=== PATIENT | male | born 1955 | race Caucasian/White ===

== ENCOUNTER 2021-12-19 14:42 | Inpatient (IN) | payer BC, MEDICARE ==
[2021-12-19] MEDS: SODIUM CHLORIDE 0.9% 500 ML 500 ML IV SCH ×3 (15:15→19:33)
[2021-12-19 15:57] LABS: Appearance,Urine Turbid (Clear); Bacteria,Urine Many /hpf; Color,Urine Brown; Mucus,Urine Many /hpf; RBC,Urine >182 /hpf (0-5); WBC,Urine >182 /hpf (0-5)
[2021-12-19] MEDS ORDERED: PIPERACILLIN-TAZOBACTAM 3.375 GM in SODIUM CHLORIDE 0.9% 100 ML IVPB STA (16:22)
[2021-12-19 17:06] LABS: Basophils % (A) 0 %; Eosinophils # (A) 0.1 k/uL (0-0.7); Eosinophils % (A) 1 %; HCT 29.6 % (39.0-53.0); HGB 9.2 gm/dL (13.0-17.5); Hypochromasia Slight; Lymphocytes # (A) 1.2 k/uL (1.0-4.8); Lymphocytes % (A) 12 %; MCH 23.4 pg (25.0-35.0); MCHC 31.2 g/dL (31.0-37.0); MCV 74.9 fL (80.0-100.0); Mean Platelet Volume 6.5; Microcytosis Slight; Monocytes # (A) 0.7 k/uL (0-1.0); Monocytes % (A) 7 %; Neutrophils # (A) 8.2 k/uL (1.3-7.7); Neutrophils % (A) 78 %; Platelet Count 455 k/uL (150-450); RBC 3.96 m/uL (4.30-5.90); RDW 13.9 % (11.5-15.5); WBC 10.5 k/uL (3.8-10.6)
--- NOTE | 2021-12-19 17:15 | ED ---
General Adult HPI - General Chief complaint: Urogenital Stated complaint: Dizziness Time Seen by Provider: 12/19/21 16:03 Source: patient Mode of arrival: ambulatory Limitations: no limitations - History of Present Illness Initial comments: 66 year-old male patient presents to the emergency department for evaluation of brown, foul smelling urine. Patient states he had cystoscope with Dr. Flores urologist 11 days ago. States about three days after he developed darkening of his urine. States when it did not clear up he went to Dr. Chaney and was started on Cipro for UTI. States that he has been taking the cipro for the last 5 days. States that his urine has become more foul. Feels like for the last couple days he has been having "air" come out with his urine. He denies any fevers but states he feels shaky and weak. Denies any dysuria, frequency, or urgency. He has been taking myrbetriq. States he was seeing urology in the first place for urinary frequency, with slow stream, and small output. He has history of hypertension. No other medical problems. - Related Data Home Medications Medication Instructions Recorded Confirmed Alfuzosin HCl [Alfuzosin HCl ER] 10 mg PO W/SUPPER 12/19/21 12/19/21 Ciprofloxacin HCl [Cipro] 500 mg PO BID 12/19/21 12/19/21 Fish Oil/Dha/Epa [Fish Oil 1,200 1 cap PO DAILY 12/19/21 12/19/21 mg Fish Oil] Olmesartan/Hydrochlorothiazide 1 tab PO DAILY 12/19/21 12/19/21 [Olmesartan-Hctz 20-12.5 mg Tab] Turmeric Root Extract [Turmeric] 500 mg PO DAILY 12/19/21 12/19/21 Allergies Allergy/AdvReac Type Severity Reaction Status Date / Time No Known Allergies Allergy Verified 12/19/21 18:05 Review of Systems ROS Statement: Those systems with pertinent positive or pertinent negative responses have been documented in the HPI. ROS Other: All systems not noted in ROS Statement are negative. Past Medical History Past Medical History: Hypertension, Prostate Disorder History of Any Multi-Drug Resistant Organisms: MRSA Date of last positivie culture/infection: 2017 MDRO Source:: mouth Past Surgical History: Appendectomy, Orthopedic Surgery Past Psychological History: No Psychological Hx Reported Smoking Status: Never smoker Past Alcohol Use History: None Reported Past Drug Use History: None Reported General Exam Limitations: no limitations General appearance: alert, in no apparent distress, other (Physical well- developed, well-nourished adult male in no acute distress.) ENT exam: Present: normal exam, normal oropharynx Respiratory exam: Present: normal lung sounds bilaterally. Absent: respiratory distress, wheezes, rales, rhonchi, stridor Cardiovascular Exam: Present: normal rhythm, tachycardia, normal heart sounds. Absent: systolic murmur, diastolic murmur, rubs, gallop, clicks GI/Abdominal exam: Present: soft, normal bowel sounds. Absent: distended, tenderness, guarding, rebound, rigid Neurological exam: Present: alert, oriented X3, CN II-XII intact Psychiatric exam: Present: normal affect, normal mood Skin exam: Present: warm, dry, intact, normal color. Absent: rash Course Vital Signs 12/19/21 12/19/21 15:04 17:48 Temperature 97.3 F L Pulse Rate 116 H 101 H Respiratory 20 18 Rate Blood Pressure 103/62 112/66 O2 Sat by Pulse 97 100 Oximetry Medical Decision Making - Medical Decision Making 66-year-old male patient presents into the emergency department today for foul- smelling brown urine after having a cystoscopy about a week and a half ago. He was started on Cipro 5 days ago and has had no improvement. Physical examination revealed soft, non-tender abdomen. He is afebrile. Tachycardic upon arrival. Labs reviewed and did reveal hemoglobin of 9.2, potassium 3.4, BUN 35, creatinine 1.63. Urinalysis showed greater than 182 reds, greater than 182 whites, many bacteria. This will be sent for culture. He tested negative COVI D. CT abdomen pelvis is obtained and reveals perforated diverticulum with abscess. There is inflammation in the bladder with possible fistula. I did discuss findings and results with the patient. Case was discussed with Dr. Ortega general surgery, Dr. Engel urology, and Ninfa Magdaleno from [facility]. He is agreeable to admission. He is given zosyn. My attending is Dr. Mcdaniel. - Lab Data Result diagrams: 12/19/21 17:01 12/19/21 17:01 Lab Results 12/19/21 12/19/21 12/19/21 Range/Units 15:13 17:01 17:01 WBC 10.5 (3.8-10.6) k/uL RBC 3.96 L (4.30-5.90) m/uL Hgb 9.2 L (13.0-17.5) gm/dL Hct 29.6 L (39.0-53.0) % MCV 74.9 L (80.0-100.0) fL MCH 23.4 L (25.0-35.0) pg MCHC 31.2 (31.0-37.0) g/dL RDW 13.9 (11.5-15.5) % Plt Count 455 H (150-450) k/uL MPV 6.5 Neutrophils % 78 % Lymphocytes % 12 % Monocytes % 7 % Eosinophils % 1 % Basophils % 0 % Neutrophils # 8.2 H (1.3-7.7) k/uL Lymphocytes # 1.2 (1.0-4.8) k/uL Monocytes # 0.7 (0-1.0) k/uL Eosinophils # 0.1 (0-0.7) k/uL Basophils # 0.0 (0-0.2) k/uL Hypochromasia Slight Microcytosis Slight PT 11.1 (9.0-12.0) sec INR 1.0 (<1.2) APTT 24.3 (22.0-30.0) sec Sodium (137-145) mmol/L Potassium (3.5-5.1) mmol/L Chloride (98-107) mmol/L Carbon Dioxide (22-30) mmol/L Anion Gap mmol/L BUN (9-20) mg/dL Creatinine (0.66-1.25) mg/dL Est GFR (CKD-EPI)AfAm (>60 ml/min/1.73 sqM) Est GFR (CKD-EPI)NonAf (>60 ml/min/1.73 sqM) Glucose (74-99) mg/dL Plasma Lactic Acid Francisco (0.7-2.0) mmol/L Calcium (8.4-10.2) mg/dL Total Bilirubin (0.2-1.3) mg/dL AST (17-59) U/L ALT (4-49) U/L Alkaline Phosphatase (38-126) U/L Total Protein (6.3-8.2) g/dL Albumin (3.5-5.0) g/dL Urine Color Brown Urine Appearance Turbid (Clear) Urine RBC >182 H (0-5) /hpf Urine WBC >182 H (0-5) /hpf Urine WBC Clumps Many H (None) /hpf Urine Bacteria Many H (None) /hpf Urine Mucus Many H (None) /hpf Coronavirus (PCR) (Not Detectd) 12/19/21 12/19/21 12/19/21 Range/Units 17:01 17:01 17:37 WBC (3.8-10.6) k/uL RBC (4.30-5.90) m/uL Hgb (13.0-17.5) gm/dL Hct (39.0-53.0) % MCV (80.0-100.0) fL MCH (25.0-35.0) pg MCHC (31.0-37.0) g/dL RDW (11.5-15.5) % Plt Count (150-450) k/uL MPV Neutrophils % % Lymphocytes % % Monocytes % % Eosinophils % % Basophils % % Neutrophils # (1.3-7.7) k/uL Lymphocytes # (1.0-4.8) k/uL Monocytes # (0-1.0) k/uL Eosinophils # (0-0.7) k/uL Basophils # (0-0.2) k/uL Hypochromasia Microcytosis PT (9.0-12.0) sec INR (<1.2) APTT (22.0-30.0) sec Sodium 136 L (137-145) mmol/L Potassium 3.4 L (3.5-5.1) mmol/L Chloride 103 (98-107) mmol/L Carbon Dioxide 22 (22-30) mmol/L Anion Gap 11 mmol/L BUN 35 H (9-20) mg/dL Creatinine 1.63 H (0.66-1.25) mg/dL Est GFR (CKD-EPI)AfAm 50 (>60 ml/min/1.73 sqM) Est GFR (CKD-EPI)NonAf 43 (>60 ml/min/1.73 sqM) Glucose 109 H (74-99) mg/dL Plasma Lactic Acid Francisco 1.0 (0.7-2.0) mmol/L Calcium 9.3 (8.4-10.2) mg/dL Total Bilirubin 0.4 (0.2-1.3) mg/dL AST 16 L (17-59) U/L ALT 12 (4-49) U/L Alkaline Phosphatase 58 (38-126) U/L Total Protein 6.2 L (6.3-8.2) g/dL Albumin 3.6 (3.5-5.0) g/dL Urine Color Urine Appearance (Clear) Urine RBC (0-5) /hpf Urine WBC (0-5) /hpf Urine WBC Clumps (None) /hpf Urine Bacteria (None) /hpf Urine Mucus (None) /hpf Coronavirus (PCR) Not Detected (Not Detectd) - Radiology Data Radiology results: report reviewed, image reviewed CT abdomen and pelvis with contrast was obtained. Report reviewed in its entirety. Impression by Dr. Valencia shows findings concerning for perforated diverticulitis with abscess formation. The abscess its immediately above the urinary bladder with urinary bladder wall thickening which is likely reactive. Process within the bladder lumen suggest possibility of fistula from the abscess to the urinary bladder. Prostatomegaly. Bilateral inguinal hernias. Left non-obstructing renal calculus. Right renal cyst. Disposition Clinical Impression: Perforated diverticulum, Bladder fistula, UTI (urinary tract infection) Disposition: ADMITTED IP TO THIS [facility] Condition: Serious Decision to Admit Reason: Admit from EC Decision Date: 12/19/21 Decision Time: 20:35
[2021-12-19 17:18] LABS: Partial Thromboplastin Time 24.3 sec (22.0-30.0); Prothrombin Time 11.1 sec (9.0-12.0)
[2021-12-19 17:19] LABS: Albumin 3.6 g/dL (3.5-5.0); Calcium 9.3 mg/dL (8.4-10.2); Potassium 3.4 mmol/L (3.5-5.1); Total Bilirubin 0.4 mg/dL (0.2-1.3); Total Protein 6.2 g/dL (6.3-8.2)
--- NOTE | 2021-12-19 18:48 | CT ---
EXAMINATION TYPE: CT abdomen pelvis wo con CT DLP: 1197 mGycm, Automated exposure control for dose reduction was used. DATE OF EXAM: 12/19/2021 6:11 PM COMPARISON: None. CLINICAL INDICATION:Male, 66 years old with history of Abd pain; generalized abdominal pain, "UTI" TECHNIQUE: Standard CT of the abdomen and pelvis without IV or oral contrast. Lack of IV or oral co ntrast limits evaluation of solid and hollow organ viscera. Coronal and sagittal reformats were perfo rmed. FINDINGS: LOWER CHEST: Unremarkable ABDOMEN LIVER: Unremarkable GALLBLADDER AND BILE DUCTS: Unremarkable. PANCREAS: Unremarkable. SPLEEN: Unremarkable. ADRENAL GLANDS: Unremarkable. KIDNEYS AND URETERS: No evidence of hydronephrosis or renal calculus. The ureters are unremarkable. S imple cyst measuring up to 4.2 cm. Show smaller centimeters cyst is also present. A left nonobstructi ng calculus measures millimeters. PELVIS BLADDER: There is a focus of gas within the bladder lumen appreciated on image 135 of series 201. REPRODUCTIVE: Prostate is enlarged in size measuring 6.1 cm in transverse dimension. ABDOMEN & PELVIS STOMACH AND BOWEL: There is a thick-walled feces containing structure within the low central abdomen measuring 6.4 x 4.5 cm which appears separate from bowel/colon. This is in close proximity to the sig moid colon where there are multiple colonic diverticula present. There is surrounding fat stranding c hanges around this area. This immediately abuts the urinary bladder wall with indentation of the supe rior bladder wall. The bladder wall appears thickened measuring up to 18 mm . There are scattered lym ph nodes around this area. No evidence of bowel obstruction. PERITONEUM: No evidence of pneumoperitoneum or free fluid. VASCULATURE: No evidence of aortic aneurysm. MUSCULOSKELETAL: No acute osseous abnormalities LYMPH NODES: No gross evidence for lymphadenopathy. SOFT TISSUE/ABDOMINAL WALL: Bilateral fat filled inguinal hernia. IMPRESSION: 1. Findings concerning for perforated diverticulitis with abscess formation. The abscess sits immedi ately above the urinary bladder with urinary bladder wall thickening which is likely reactive. Assess within the bladder lumen suggests possibility of fistula from the abscess to the urinary bladder 2. Prostatomegaly. 3. Bilateral inguinal hernias. 4. Left obstructing renal calculus. 5. Right renal cyst.
[2021-12-19] MEDS ORDERED: NALOXONE 0.4 MG/ML 1 ML VIAL IV PRN (20:32)
[2021-12-19] MEDS ORDERED: ONDANSETRON 4 MG/2 ML VIAL IVP PRN (20:32)
[2021-12-19] MEDS ORDERED: MORPHINE SULFATE 4 MG/ML SYRINGE IV PRN (20:32)
[2021-12-19] MEDS: SODIUM CHLORIDE 0.9% 1,000 ML IV SCH (23:59)
[2021-12-19] MEDS: PIPERACILLIN-TAZOBACTAM 3.375 GM in SODIUM CHLORIDE 0.9% 100 ML IVPB SCH (23:59)
--- NOTE | 2021-12-20 08:39 | P.GSCN ---
History of Present Illness Consult date: 12/20/21 History of present illness: 66 yo male who presented to the er with brown, foul smelling urine. He has also noticed air when he voids as well as food particles. His urine is infected looking and there is air in his bladder on ct scan as well as diverticulitis wath abscess formation. Of note urologically he was seeing a urologist in [place] for urinary frequency. He had a cysto about 11 days ago where an enlarged prostate was identiifed but no intravesical pathology. He states that he started with the lower tract symptoms as mentioned above. He was started on cipro [address] Chaney. THe patients urine on this exam looks infected. He had been treated with tamsulosin in the past but it gave him to many side effects. He was given a anticholinergic but never really took a. Review of Systems All systems: negative - Constitutional Denies fever, Denies weight loss - EENT Eyes: denies blurred vision Ears, nose, mouth and throat: Denies dysphagia - Cardiovascular Denies chest pain, Denies shortness of breath - Respiratory Denies cough, Denies 7 - Gastrointestinal Reports as per HPI - Genitourinary Denies dysuria, Denies hematuria - Integumentary Denies rash, Denies unusual bruising - Neurological Denies headaches, Denies syncope - Hematologic/Lymphatic Denies easy bleeding, Denies easy bruising Past Medical History Past Medical History: Hypertension, Prostate Disorder Additional Past Medical History / Comment(s): psa elevated 9 yrs ago but came down. History of Any Multi-Drug Resistant Organisms: MRSA Year Discovered:: 2018 MDRO Source:: mouth Past Surgical History: Appendectomy, Orthopedic Surgery Additional Past Surgical History / Comment(s): cystoscopy with Dr Flores 12/08/21. chad from ankle to rt knee Past Psychological History: No Psychological Hx Reported Smoking Status: Never smoker Past Alcohol Use History: None Reported Past Drug Use History: None Reported Medications and Allergies Home Medications Medication Instructions Recorded Confirmed Type Alfuzosin HCl [Alfuzosin HCl ER] 10 mg PO W/SUPPER 12/19/21 12/19/21 History Ciprofloxacin HCl [Cipro] 500 mg PO BID 12/19/21 12/19/21 History Fish Oil/Dha/Epa [Fish Oil 1,200 1 cap PO DAILY 12/19/21 12/19/21 History mg Fish Oil] Olmesartan/Hydrochlorothiazide 1 tab PO DAILY 12/19/21 12/19/21 History [Olmesartan-Hctz 20-12.5 mg Tab] Turmeric Root Extract [Turmeric] 500 mg PO DAILY 12/19/21 12/19/21 History Allergies Allergy/AdvReac Type Severity Reaction Status Date / Time No Known Allergies Allergy Verified 12/19/21 18:05 Surgical - Exam Vital Signs Temp Pulse Resp BP Pulse Ox 97.3 F L 116 H 20 103/62 97 12/19/21 15:04 12/19/21 15:04 12/19/21 15:04 12/19/21 15:04 12/19/21 15:04 - General well developed, well nourished - Eyes PERRL - ENT no hearing loss - Neck no masses - Respiratory normal expansion, normal respiratory effort - Cardiovascular Rhythm: regular - Abdomen Abdomen: soft, non tender - Genitourinary normal penis with no external lesions, testicles present - Integumentary no growths - Neurologic normal coordination, normal sensation - Musculoskeletal normal posture - Psychiatric oriented to time, oriented to person, oriented to place, speech is normal, memory intact Results - Labs 12/19/21 17:01 12/19/21 17:01 Abnormal Lab Results - Last 24 Hours (Table) 12/19/21 12/19/21 12/19/21 Range/Units 15:13 17:01 17:01 RBC 3.96 L (4.30-5.90) m/uL Hgb 9.2 L (13.0-17.5) gm/dL Hct 29.6 L (39.0-53.0) % MCV 74.9 L (80.0-100.0) fL MCH 23.4 L (25.0-35.0) pg Plt Count 455 H (150-450) k/uL Neutrophils # 8.2 H (1.3-7.7) k/uL Sodium 136 L (137-145) mmol/L Potassium 3.4 L (3.5-5.1) mmol/L BUN 35 H (9-20) mg/dL Creatinine 1.63 H (0.66-1.25) mg/dL Glucose 109 H (74-99) mg/dL AST 16 L (17-59) U/L Total Protein 6.2 L (6.3-8.2) g/dL Urine RBC >182 H (0-5) /hpf Urine WBC >182 H (0-5) /hpf Urine WBC Clumps Many H (None) /hpf Urine Bacteria Many H (None) /hpf Urine Mucus Many H (None) /hpf Microbiology - Last 24 Hours (Table) 12/19/21 15:13 Urine Culture - Preliminary Urine,Voided Diabetes panel 12/19/21 Range/Units 17:01 Sodium 136 L (137-145) mmol/L Potassium 3.4 L (3.5-5.1) mmol/L Chloride 103 (98-107) mmol/L Carbon Dioxide 22 (22-30) mmol/L BUN 35 H (9-20) mg/dL Creatinine 1.63 H (0.66-1.25) mg/dL Glucose 109 H (74-99) mg/dL Calcium 9.3 (8.4-10.2) mg/dL AST 16 L (17-59) U/L ALT 12 (4-49) U/L Alkaline Phosphatase 58 (38-126) U/L Total Protein 6.2 L (6.3-8.2) g/dL Albumin 3.6 (3.5-5.0) g/dL Calcium panel 12/19/21 Range/Units 17:01 Calcium 9.3 (8.4-10.2) mg/dL Albumin 3.6 (3.5-5.0) g/dL Pituitary panel 12/19/21 Range/Units 17:01 Sodium 136 L (137-145) mmol/L Potassium 3.4 L (3.5-5.1) mmol/L Chloride 103 (98-107) mmol/L Carbon Dioxide 22 (22-30) mmol/L BUN 35 H (9-20) mg/dL Creatinine 1.63 H (0.66-1.25) mg/dL Glucose 109 H (74-99) mg/dL Calcium 9.3 (8.4-10.2) mg/dL Adrenal panel 12/19/21 Range/Units 17:01 Sodium 136 L (137-145) mmol/L Potassium 3.4 L (3.5-5.1) mmol/L Chloride 103 (98-107) mmol/L Carbon Dioxide 22 (22-30) mmol/L BUN 35 H (9-20) mg/dL Creatinine 1.63 H (0.66-1.25) mg/dL Glucose 109 H (74-99) mg/dL Calcium 9.3 (8.4-10.2) mg/dL Total Bilirubin 0.4 (0.2-1.3) mg/dL AST 16 L (17-59) U/L ALT 12 (4-49) U/L Alkaline Phosphatase 58 (38-126) U/L Total Protein 6.2 L (6.3-8.2) g/dL Albumin 3.6 (3.5-5.0) g/dL - Imaging CT scan - abdomen: report reviewed, image reviewed CT scan - pelvis: report reviewed, image reviewed Assessment and Plan Assessment: 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 BPH with obstruction chronic Recommendations: At this juncture there is nothing urologic needs to be done. He needs general surgical consultation for probable surgical intervention for this problem. This is been discussed at length with the patient. I will do with his BPH at a later date.
[2021-12-20 09:04] LABS: HCT 26.2 % (39.6-50.0); HGB 8.3 g/dL (13.0-17.0); MCH 23.1 pg (27.0-32.0); MCHC 31.7 g/dL (32.0-37.0); Mean Platelet Volume 8.5 fL (9.5-12.2); Platelet Count 389 X 10*3/uL (140-440); RBC 3.59 X 10*6/uL (4.40-5.60); RDW 14.6 % (11.5-14.5); WBC 7.63 X 10*3/uL (4.50-10.00)
[2021-12-20 09:15] LABS: African American GFR (CKD) 59.8 (60.0-200.0); Anion Gap 11.6 mmol/L (10.00-18.00); BUN/Creat Ratio 15.29 Ratio (12.00-20.00); Blood Urea Nitrogen 21.4 mg/dL (9.0-27.0); Calcium 8.8 mg/dL (8.7-10.3); Carbon Dioxide 21.4 mmol/L (20.0-27.5); Non-African American GFR(CKD) 51.6 (60.0-200.0); Potassium 3.6 mmol/L (3.5-5.5)
[2021-12-20] MEDS: PIPERACILLIN-TAZOBACTAM 3.375 GM in SODIUM CHLORIDE 0.9% 100 ML IVPB SCH ×2 (09:46→17:46)
[2021-12-20 09:56] LABS: Basophils # (A) 0.06 X 10*3/uL (0.00-0.10); Basophils % (A) 0.8 %; Eosinophils # (A) 0.19 X 10*3/uL (0.04-0.35); Eosinophils % (A) 2.5 %; Lymphocytes # (A) 1.54 X 10*3/uL (0.90-5.00); Lymphocytes % (A) 20.2 %; Monocytes % (A) 11.8 %; Neutrophils # (A) 4.86 X 10*3/uL (1.80-7.70); Neutrophils % (A) 63.7 %
[2021-12-20 09:57] LABS: Microcytosis (M) 2+
[2021-12-20] MEDS: SODIUM CHLORIDE 0.9% 1,000 ML IV SCH (14:34)
--- NOTE | 2021-12-20 14:48 | P.GSCN ---
History of Present Illness Consult date: 12/20/21 History of present illness: CHIEF COMPLAINT: Stool and urine HISTORY OF PRESENT ILLNESS: This is a 66-year-old male who presented to the hospital with brown foul-smelling urine. He had a cystoscopy with Dr. Flores from urology 11 days ago. Patient also treated with antibiotics with no improvement in his urinary symptoms. Patient reports that his symptoms started 2 days after his cystoscopy. Patient denies any abdominal pain. Denies any abdominal pain last week. He also reports that he is sometimes passes air through his urine. He denies any nausea or vomiting. He had a computed tomography scan of the abdomen and pelvis completed which had shown perforated diverticulitis with abscess formation and concerns for a colovesical fistula. Patient has been seen by urology. Patient is currently on antibiotics. He reports that his urine is now clear. He is currently nothing by mouth. Denies any fever chills or sweats. Denies any nausea vomiting. Patient denies any prior history of diverticulitis. Denies ever having a colonoscopy. PAST MEDICAL HISTORY: Hypertension, enlarged prostate PAST SURGICAL HISTORY: Appendectomy MEDICATIONS: See list. ALLERGIES: See list. SOCIAL HISTORY: No illicit drug use. REVIEW OF SYSTEMS: CONSTITUTIONAL: Denies fever or chills. HEENT: Denies blurred vision, vision changes, or eye pain. Denies hemoptysis CARDIOVASCULAR: Denies chest pain or pressure. RESPIRATORY: No shortness of breath. GASTROINTESTINAL: See HPI for pertinent findings HEMATOLOGIC: Denies bleeding disorders. GENITOURINARY: Denies any blood in urine or increased urinary frequency. SKIN: Denies pruitis. Denies rash. PHYSICAL EXAM: VITAL SIGNS: Reviewed GENERAL: Well-developed in no acute distress. HEENT: No sclera icterus. Extraocular movements grossly intact. Moist buccal mucosa. Head is atraumatic, normocephalic. No nasal drainage. ABDOMEN: Soft. Nondistended. Mild tenderness to palpation and suprapubic area NEUROLOGIC: Alert and oriented. Cranial nerves II through XII grossly intact. LABORATORY DATA: WBC 7.63 hemoglobin 8.3 platelets 389 Sodium 138 potassium 3.6 creatinine 1.4 IMAGING: Computed tomography scan abdomen and pelvis findings consistent for perforated diverticulitis with abscess formation. Abscess site immediately above the urinary bladder with urinary bladder wall thickening which is likely reactive. Assessment within the bladder lumen suggest possibility of fistula from the abscess to the urinary bladder. Prostatomegaly. Bilateral inguinal hernias. Left obstructing renal calculus. Right renal cyst. ASSESSMENT: 1. Acute perforated diverticulitis with abscess formation and colovesical fistula PLAN: -Further recommendations forthcoming per surgeon regarding actual date of surgery -Continue supportive care -Continue antibiotics -Continue IV fluids Thank you for this consultation Physician Flat Cutter note has been reviewed by physician. Signing provider agrees with the documented findings, assessment, and plan of care. Past Medical History Past Medical History: Hypertension, Prostate Disorder Additional Past Medical History / Comment(s): psa elevated 9 yrs ago but came down. History of Any Multi-Drug Resistant Organisms: MRSA Year Discovered:: 2018 MDRO Source:: mouth Past Surgical History: Appendectomy, Orthopedic Surgery Additional Past Surgical History / Comment(s): cystoscopy with Dr Flores 12/08/21. chad from ankle to rt knee Past Psychological History: No Psychological Hx Reported Smoking Status: Never smoker Past Alcohol Use History: None Reported Past Drug Use History: None Reported Medications and Allergies Home Medications Medication Instructions Recorded Confirmed Type Alfuzosin HCl [Alfuzosin HCl ER] 10 mg PO W/SUPPER 12/19/21 12/19/21 History Ciprofloxacin HCl [Cipro] 500 mg PO BID 12/19/21 12/19/21 History Fish Oil/Dha/Epa [Fish Oil 1,200 1 cap PO DAILY 12/19/21 12/19/21 History mg Fish Oil] Olmesartan/Hydrochlorothiazide 1 tab PO DAILY 12/19/21 12/19/21 History [Olmesartan-Hctz 20-12.5 mg Tab] Turmeric Root Extract [Turmeric] 500 mg PO DAILY 12/19/21 12/19/21 History Allergies Allergy/AdvReac Type Severity Reaction Status Date / Time No Known Allergies Allergy Verified 12/19/21 18:05 Surgical - Exam Vital Signs Temp Pulse Resp BP Pulse Ox 97.3 F L 116 H 20 103/62 97 12/19/21 15:04 12/19/21 15:04 12/19/21 15:04 12/19/21 15:04 12/19/21 15:04 Results - Labs 12/20/21 06:10 12/20/21 06:10 Abnormal Lab Results - Last 24 Hours (Table) 12/19/21 12/19/21 12/19/21 Range/Units 15:13 17:01 17:01 RBC 3.96 L (4.30-5.90) m/uL Hgb 9.2 L (13.0-17.5) gm/dL Hct 29.6 L (39.0-53.0) % MCV 74.9 L (80.0-100.0) fL MCH 23.4 L (25.0-35.0) pg MCHC (32.0-37.0) g/dL RDW (11.5-14.5) % Plt Count 455 H (150-450) k/uL MPV (9.5-12.2) fL Immature Gran # (0.00-0.04) X 10*3/uL Neutrophils # 8.2 H (1.3-7.7) k/uL Sodium 136 L (137-145) mmol/L Potassium 3.4 L (3.5-5.1) mmol/L BUN 35 H (9-20) mg/dL Creatinine 1.63 H (0.66-1.25) mg/dL Est GFR (CKD-EPI)AfAm (60.0-200.0) Est GFR (CKD-EPI)NonAf (60.0-200.0) Glucose 109 H (74-99) mg/dL AST 16 L (17-59) U/L Total Protein 6.2 L (6.3-8.2) g/dL Urine RBC >182 H (0-5) /hpf Urine WBC >182 H (0-5) /hpf Urine WBC Clumps Many H (None) /hpf Urine Bacteria Many H (None) /hpf Urine Mucus Many H (None) /hpf 12/20/21 12/20/21 Range/Units 06:10 06:10 RBC 3.59 L (4.30-5.90) m/uL Hgb 8.3 L (13.0-17.5) gm/dL Hct 26.2 L (39.0-53.0) % MCV 73.0 L (80.0-100.0) fL MCH 23.1 L (25.0-35.0) pg MCHC 31.7 L (32.0-37.0) g/dL RDW 14.6 H (11.5-14.5) % Plt Count (150-450) k/uL MPV 8.5 L (9.5-12.2) fL Immature Gran # 0.08 H (0.00-0.04) X 10*3/uL Neutrophils # (1.3-7.7) k/uL Sodium (137-145) mmol/L Potassium (3.5-5.1) mmol/L BUN (9-20) mg/dL Creatinine (0.66-1.25) mg/dL Est GFR (CKD-EPI)AfAm 59.8 L (60.0-200.0) Est GFR (CKD-EPI)NonAf 51.6 L (60.0-200.0) Glucose (74-99) mg/dL AST (17-59) U/L Total Protein (6.3-8.2) g/dL Urine RBC (0-5) /hpf Urine WBC (0-5) /hpf Urine WBC Clumps (None) /hpf Urine Bacteria (None) /hpf Urine Mucus (None) /hpf Microbiology - Last 24 Hours (Table) 12/19/21 15:13 Urine Culture - Preliminary Urine,Voided Diabetes panel 12/19/21 12/20/21 Range/Units 17:01 06:10 Sodium 136 L 138 (137-145) mmol/L Potassium 3.4 L 3.6 (3.5-5.1) mmol/L Chloride 103 105 (98-107) mmol/L Carbon Dioxide 22 21.4 (22-30) mmol/L BUN 35 H 21.4 (9-20) mg/dL Creatinine 1.63 H 1.4 (0.66-1.25) mg/dL Glucose 109 H 104 (74-99) mg/dL Calcium 9.3 8.8 (8.4-10.2) mg/dL AST 16 L (17-59) U/L ALT 12 (4-49) U/L Alkaline Phosphatase 58 (38-126) U/L Total Protein 6.2 L (6.3-8.2) g/dL Albumin 3.6 (3.5-5.0) g/dL Calcium panel 12/19/21 12/20/21 Range/Units 17:01 06:10 Calcium 9.3 8.8 (8.4-10.2) mg/dL Albumin 3.6 (3.5-5.0) g/dL Pituitary panel 12/19/21 12/20/21 Range/Units 17:01 06:10 Sodium 136 L 138 (137-145) mmol/L Potassium 3.4 L 3.6 (3.5-5.1) mmol/L Chloride 103 105 (98-107) mmol/L Carbon Dioxide 22 21.4 (22-30) mmol/L BUN 35 H 21.4 (9-20) mg/dL Creatinine 1.63 H 1.4 (0.66-1.25) mg/dL Glucose 109 H 104 (74-99) mg/dL Calcium 9.3 8.8 (8.4-10.2) mg/dL Adrenal panel 12/19/21 12/20/21 Range/Units 17:01 06:10 Sodium 136 L 138 (137-145) mmol/L Potassium 3.4 L 3.6 (3.5-5.1) mmol/L Chloride 103 105 (98-107) mmol/L Carbon Dioxide 22 21.4 (22-30) mmol/L BUN 35 H 21.4 (9-20) mg/dL Creatinine 1.63 H 1.4 (0.66-1.25) mg/dL Glucose 109 H 104 (74-99) mg/dL Calcium 9.3 8.8 (8.4-10.2) mg/dL Total Bilirubin 0.4 (0.2-1.3) mg/dL AST 16 L (17-59) U/L ALT 12 (4-49) U/L Alkaline Phosphatase 58 (38-126) U/L Total Protein 6.2 L (6.3-8.2) g/dL Albumin 3.6 (3.5-5.0) g/dL
[2021-12-20] MEDS: HEPARIN SODIUM,PORCINE/PF 5,000 UNIT/0.5 ML SYRINGE SQ SCH (17:46)
--- NOTE | 2021-12-20 22:47 | P.HPIM ---
History of Present Illness H&P Date: 12/20/21 Patient is a 66-year-old male with known history of hypertension, BPH presents to ER with complaints of brown-colored urine and foul-smelling with bubbles of air. Patient states that he had cystoscope done due to urinary urgency and frequency by his urologist about 11 days ago and started having symptoms 2 days after. Patient was seen by his primary care physician and was started on antibiotics in the form of ciprofloxacin for possible urinary tract infection. Patient has been taking antibiotics but his symptoms did not resolve. For the past 2 days he has been having pain coming out of his urine. Patient denied any complaints of fever but felt shaky and weak. Denied any dysuria. No complaints of chest pain or shortness of breath. Denied any abdominal pain. CT of the abdomen pelvis showed findings concerning for perforated diverticulitis with abscess formation. The abscess sits immediately above the urinary bladder with the urinary bladder wall thickening which is likely reactive. Abscess within the bladder lumen suggest possibility of fistula from the abscess of the urinary bladder. Left obstructing renal calculus. Prostatomegaly. Laboratory data showed WBC 10.4 hemoglobin 9.1 platelets 455 MCV 74.9 Sodium 136 potassium 3.4 chloride 103 BUN 35 and creatinine 1.63 Urinalysis showed greater than 182 RBCs and greater than 182 WBCs and many bacteria and WBC clumps Coronavirus PCR not detected. Review of Systems Constitutional: Patient denies any fever or chills . No generalized weakness or weight loss. Abdomen: Patient denied nausea vomiting and diarrhea and abdominal pain. Cardiovascular: Patient denies any chest pain or short of breath no palpitations. Respiratory: patient denied any cough or sputum production. No shortness of breath Neurologic: Patient denied any numbness or tingling headache. Musculoskeletal: Patient denies any complaints of joint swelling or deformity. Skin: Negative Psychiatric: Negative Endocrine: No heat or cold intolerance. No recent weight gain. Genitourinary: Does complain of brown-colored urine and with gas bubbles and dysuria.. All other 14 point ROS negative except the above Past Medical History Past Medical History: Hypertension, Prostate Disorder Additional Past Medical History / Comment(s): psa elevated 9 yrs ago but came down. History of Any Multi-Drug Resistant Organisms: MRSA Date of last positivie culture/infection: 2017 MDRO Source:: mouth Past Surgical History: Appendectomy, Orthopedic Surgery Additional Past Surgical History / Comment(s): cystoscopy with Dr Flores 12/08/21. chad from ankle to rt knee Past Psychological History: No Psychological Hx Reported Smoking Status: Never smoker Past Alcohol Use History: None Reported Past Drug Use History: None Reported Medications and Allergies Home Medications Medication Instructions Recorded Confirmed Type Alfuzosin HCl [Alfuzosin HCl ER] 10 mg PO W/SUPPER 12/19/21 12/19/21 History Ciprofloxacin HCl [Cipro] 500 mg PO BID 12/19/21 12/19/21 History Fish Oil/Dha/Epa [Fish Oil 1,200 1 cap PO DAILY 12/19/21 12/19/21 History mg Fish Oil] Olmesartan/Hydrochlorothiazide 1 tab PO DAILY 12/19/21 12/19/21 History [Olmesartan-Hctz 20-12.5 mg Tab] Turmeric Root Extract [Turmeric] 500 mg PO DAILY 12/19/21 12/19/21 History Allergies Allergy/AdvReac Type Severity Reaction Status Date / Time No Known Allergies Allergy Verified 12/19/21 18:05 Physical Exam Vitals: Vital Signs Temp Pulse Pulse Pulse Resp BP BP 12/20/21 08:47 70 12/20/21 07:21 94 F L 87 18 124/75 12/20/21 05:08 98.6 F 85 18 104/68 12/19/21 23:01 97.9 F 92 18 114/68 12/19/21 17:48 101 H 18 112/66 12/19/21 15:04 97.3 F L 116 H 20 103/62 Pulse Ox 12/20/21 08:47 12/20/21 07:21 94 L 12/20/21 05:08 96 12/19/21 23:01 97 12/19/21 17:48 100 12/19/21 15:04 97 Intake and Output 12/19/21 12/20/21 12/20/21 22:59 06:59 14:59 Intake Total 600 Output Total 400 400 Balance 200 -400 Intake: Intake, IV Titration 600 Amount Sodium Chloride 0.9% 1, 600 000 ml @ 75 mls/hr IV . [id number] [facility] Rx#:[id number] Output: Urine 400 400 Other: Voiding Method Toilet Urinal # Voids 1 Weight 105.687 kg PHYSICAL EXAMINATION: Patient is lying in the bed comfortably, no acute distress, awake alert and oriented.. HEENT: Normocephalic. Neck is supple. Pupils reactive. Nostrils clear. Oral cavity is moist. Neck reveals no JVD, carotid bruits, or thyromegaly. CHEST EXAMINATION: Trachea is central. Symmetrical expansion. Lung hernandez clear to auscultation and percussion. CARDIAC: Normal S1, S2 with no gallops. No murmurs ABDOMEN: Soft. Bowel sounds normal. No organomegaly. No abdominal bruits. Extremities: reveal no edema. No clubbing or cyanosis Neurologically awake, alert, oriented x3 with well-coordinated movements. No focal deficits noted Skin: No rash or skin lesions. Psychiatric: Cooperative. Nonsuicidal Musculoskeletal: No joint swelling or deformity. Normal range of motion. Results CBC & Chem 7: 12/21/21 07:02 12/21/21 07:02 Labs: Abnormal Lab Results - Last 24 Hours (Table) 12/19/21 12/19/21 12/19/21 Range/Units 15:13 17:01 17:01 RBC 3.96 L (4.30-5.90) m/uL Hgb 9.2 L (13.0-17.5) gm/dL Hct 29.6 L (39.0-53.0) % MCV 74.9 L (80.0-100.0) fL MCH 23.4 L (25.0-35.0) pg MCHC (32.0-37.0) g/dL RDW (11.5-14.5) % Plt Count 455 H (150-450) k/uL MPV (9.5-12.2) fL Neutrophils # 8.2 H (1.3-7.7) k/uL Sodium 136 L (137-145) mmol/L Potassium 3.4 L (3.5-5.1) mmol/L BUN 35 H (9-20) mg/dL Creatinine 1.63 H (0.66-1.25) mg/dL Est GFR (CKD-EPI)AfAm (60.0-200.0) Est GFR (CKD-EPI)NonAf (60.0-200.0) Glucose 109 H (74-99) mg/dL AST 16 L (17-59) U/L Total Protein 6.2 L (6.3-8.2) g/dL Urine RBC >182 H (0-5) /hpf Urine WBC >182 H (0-5) /hpf Urine WBC Clumps Many H (None) /hpf Urine Bacteria Many H (None) /hpf Urine Mucus Many H (None) /hpf 12/20/21 12/20/21 Range/Units 06:10 06:10 RBC 3.59 L (4.30-5.90) m/uL Hgb 8.3 L (13.0-17.5) gm/dL Hct 26.2 L (39.0-53.0) % MCV 73.0 L (80.0-100.0) fL MCH 23.1 L (25.0-35.0) pg MCHC 31.7 L (32.0-37.0) g/dL RDW 14.6 H (11.5-14.5) % Plt Count (150-450) k/uL MPV 8.5 L (9.5-12.2) fL Neutrophils # (1.3-7.7) k/uL Sodium (137-145) mmol/L Potassium (3.5-5.1) mmol/L BUN (9-20) mg/dL Creatinine (0.66-1.25) mg/dL Est GFR (CKD-EPI)AfAm 59.8 L (60.0-200.0) Est GFR (CKD-EPI)NonAf 51.6 L (60.0-200.0) Glucose (74-99) mg/dL AST (17-59) U/L Total Protein (6.3-8.2) g/dL Urine RBC (0-5) /hpf Urine WBC (0-5) /hpf Urine WBC Clumps (None) /hpf Urine Bacteria (None) /hpf Urine Mucus (None) /hpf Microbiology - Last 24 Hours (Table) 12/19/21 15:13 Urine Culture - Preliminary Urine,Voided Thrombosis Risk Factor Assmnt - DVT/VTE Prophylaxis DVT/VTE Prophylaxis: Pharmacologic Prophylaxis ordered - Choose All That Apply Any of the Below Risk Factors Present?: No Each Risk Factor Represents 2 Points: Age 61-74 years Thrombosis Risk Factor Assessment Total Risk Factor Score: 2 Thrombosis Risk Factor Assessment Level: Low Risk Assessment and Plan Assessment: Acute perforated diverticulitis with abscess formation Bladder wall thickening at the elbow abscess with possible fistula formation from the perforated diverticulitis. Acute kidney injury likely prerenal Hypovolemic hyponatremia Microcytic anemia. Rule out iron deficiency. Hypokalemia Left obstructing renal calculus BPH Urinary frequency and urgency Hypertension DVT prophylaxis Heparin subcu Plan: Patient will be continued on IV hydration and antibiotics in the form of Zosyn. Follow-up renal function. Replace electrolytes. Follow-up blood cultures and urine cultures. Urology and general surgery was consulted. Continue to follow closely. Prognosis is guarded at this time. Time with Patient: Greater than 30
[2021-12-21] MEDS: SODIUM CHLORIDE 0.9% 1,000 ML IV SCH ×2 (00:05→18:18)
[2021-12-21] MEDS: HEPARIN SODIUM,PORCINE/PF 5,000 UNIT/0.5 ML SYRINGE SQ SCH ×3 (00:05→16:59)
[2021-12-21] MEDS: PIPERACILLIN-TAZOBACTAM 3.375 GM in SODIUM CHLORIDE 0.9% 100 ML IVPB SCH ×3 (00:05→16:59)
[2021-12-21] MEDS ORDERED: NON FORMULARY DRUG (Fish Oil/Dha/Epa [Fish Oil 1,200 Mg Fish Oil] 1 EACH Capsule) PO SCH (09:00)
[2021-12-21] MEDS ORDERED: SODIUM FERRIC GLUCONAT-SUCROSE 125 MG in SODIUM CHLORIDE 0.9% 100 ML IVPB ONE ×2 (10:00→13:00)
[2021-12-21 11:04] LABS: Basophils # (A) 0.06 X 10*3/uL (0.00-0.10); Basophils % (A) 0.7 %; Eosinophils # (A) 0.22 X 10*3/uL (0.04-0.35); Eosinophils % (A) 2.4 %; HCT 28.8 % (39.6-50.0); HGB 8.8 g/dL (13.0-17.0); Lymphocytes # (A) 1.73 X 10*3/uL (0.90-5.00); Lymphocytes % (A) 19.1 %; MCH 22.8 pg (27.0-32.0); MCHC 30.6 g/dL (32.0-37.0); MCV 74.6 fL (80.0-97.0); Mean Platelet Volume 8.6 fL (9.5-12.2); Monocytes # (A) 1.03 X 10*3/uL (0.20-1.00); Monocytes % (A) 11.4 %; Neutrophils # (A) 5.91 X 10*3/uL (1.80-7.70); Neutrophils % (A) 65.4 %; Platelet Count 421 X 10*3/uL (140-440); RBC 3.86 X 10*6/uL (4.40-5.60); RDW 14.5 % (11.5-14.5); WBC 9.04 X 10*3/uL (4.50-10.00)
[2021-12-21 11:15] LABS: % Iron Saturation 9.97 (15.00-50.00); African American GFR (CKD) 67.3 (60.0-200.0); Anion Gap 12.3 mmol/L (10.00-18.00); BUN/Creat Ratio 12.52 Ratio (12.00-20.00); Blood Urea Nitrogen 15.9 mg/dL (9.0-27.0); Calcium 9.2 mg/dL (8.7-10.3); Carbon Dioxide 22.7 mmol/L (20.0-27.5); Non-African American GFR(CKD) 58.1 (60.0-200.0); Potassium 4.3 mmol/L (3.5-5.5)
--- NOTE | 2021-12-21 13:46 | P.PN ---
Subjective Progress Note Date: 12/21/21 CHIEF COMPLAINT: Acute perforated diverticulitis with abscess formation and colovesical fistula HISTORY OF PRESENT ILLNESS: Patient denies any abdominal pain. He started having burning with urination and passing air through his urethra again. Denies any nausea vomiting. Remains afebrile. WBC is 9.04 hemoglobin 8.8. He is on IV Zosyn. He did have a bowel movement yesterday. Denies any stool in the urine. Patient did receive a dose of IV iron. PHYSICAL EXAM: VITAL SIGNS: Reviewed. GENERAL: Well-developed in no acute distress. HEENT: No sclera icterus. Extraocular movements grossly intact. Moist buccal mucosa. Head is atraumatic, normocephalic. ABDOMEN: Soft. Nondistended. Nontender. NEUROLOGIC: Alert and oriented. Cranial nerves II through XII grossly intact. ASSESSMENT: 1. Acute perforated diverticulitis with abscess formation and colovesical fistula PLAN: -Recommend to keep patient over the weekend to continue IV antibiotics. Patient is symptomatic with dysuria. -Anticipating surgery early next week -Continue supportive care -Continue antibiotics -Continue IV fluids -DVT prophylaxis subcu heparin Physician Levi Maker note has been reviewed by physician. Signing provider agrees with the documented findings, assessment, and plan of care. Objective - Vital Signs Vital signs: Vital Signs Temp 98.5 F 12/21/21 07:54 Pulse 77 12/21/21 07:54 Resp 12 12/21/21 07:54 BP 103/67 12/21/21 07:54 Pulse Ox 96 12/21/21 07:54 Intake & Output 12/20/21 12/21/21 12/21/21 18:59 06:59 18:59 Intake Total 1100 237 Output Total 1400 450 Balance -300 -213 Intake: Intake, IV Titration 1100 Amount Piperacillin-Tazobactam 3 200 .375 gm In Sodium Chloride 0.9% 100 ml @ 25 mls/hr IVPB Q8HR [facility] Rx# :[id number] Sodium Chloride 0.9% 1, 900 000 ml @ 75 mls/hr IV . [id number] [facility] Rx#:[id number] Oral 237 Output: Urine 1400 450 Other: Voiding Method Toilet Toilet Toilet Urinal Urinal Urinal # Voids 1 1 - Labs CBC & Chem 7: 12/21/21 07:02 12/21/21 07:02 Labs: Abnormal Lab Results - Last 24 Hours (Table) 12/21/21 12/21/21 Range/Units 07:02 07:02 RBC 3.86 L (4.40-5.60) X 10*6/uL Hgb 8.8 L (13.0-17.0) g/dL Hct 28.8 L (39.6-50.0) % MCV 74.6 L (80.0-97.0) fL MCH 22.8 L (27.0-32.0) pg MCHC 30.6 L (32.0-37.0) g/dL MPV 8.6 L (9.5-12.2) fL Immature Gran # 0.09 H (0.00-0.04) X 10*3/uL Monocytes # 1.03 H (0.20-1.00) X 10*3/uL Est GFR (CKD-EPI)NonAf 58.1 L (60.0-200.0) Iron 22 L (65-175) ug/dL TIBC 223 L (228-460) ug/dL % Saturation 9.97 L (15.00-50.00) Transferrin 159.0 L (204.0-354.0) mg/dL Microbiology - Last 24 Hours (Table) 12/19/21 17:30 Blood Culture - Preliminary Blood No Growth after 24 hours 12/19/21 17:15 Blood Culture - Preliminary Blood No Growth after 24 hours 12/19/21 15:13 Urine Culture - Final Urine,Voided
--- NOTE | 2021-12-21 22:23 | P.PN ---
Subjective Progress Note Date: 12/21/21 Patient is a 66-year-old male with known history of hypertension, BPH presents to ER with complaints of brown-colored urine and foul-smelling with bubbles of air. Patient states that he had cystoscope done due to urinary urgency and frequency by his urologist about 11 days ago and started having symptoms 2 days after. Patient was seen by his primary care physician and was started on antibiotics in the form of ciprofloxacin for possible urinary tract infection. Patient has been taking antibiotics but his symptoms did not resolve. For the past 2 days he has been having pain coming out of his urine. Patient denied any complaints of fever but felt shaky and weak. Denied any dysuria. No complaints of chest pain or shortness of breath. Denied any abdominal pain. CT of the abdomen pelvis showed findings concerning for perforated diverticulitis with abscess formation. The abscess sits immediately above the urinary bladder with the urinary bladder wall thickening which is likely reactive. Abscess within the bladder lumen suggest possibility of fistula from the abscess of the urinary bladder. Left obstructing renal calculus. Prostatomegaly. Laboratory data showed WBC 10.4 hemoglobin 9.1 platelets 455 MCV 74.9 Sodium 136 potassium 3.4 chloride 103 BUN 35 and creatinine 1.63 Urinalysis showed greater than 182 RBCs and greater than 182 WBCs and many bacteria and WBC clumps Coronavirus PCR not detected. 12/21/2021 Patient is currently resting in bed. Denied any complaints of abdominal pain. Still having burning with urination. No complaints of brown-colored urine or gas bubbles in the urine. Patient has been afebrile. Patient is being continued on antibiotics in the form of Zosyn. Laboratory showed WBC 9.04 hemoglobin 8.8 and platelets 421 MCV 74.6 Iron profile is a history of iron deficiency. Patient was seen by general surgery and recommended to continue with antibiotics and liquid diet and considering surgery early next week. Current medications reviewed. Objective - Vital Signs Vital signs: Vital Signs Temp 97.7 F 12/21/21 12:56 Pulse 83 12/21/21 15:28 Resp 12 12/21/21 12:56 BP 127/77 12/21/21 12:56 Pulse Ox 95 12/21/21 12:56 Intake & Output 12/21/21 12/21/21 12/22/21 06:59 18:59 06:59 Intake Total 237 Output Total 450 Balance -213 Intake: Oral 237 Output: Urine 450 Other: Voiding Method Toilet Urinal Urinal # Voids 1 3 - Exam PHYSICAL EXAMINATION: Patient is lying in the bed comfortably, no acute distress, awake alert and oriented.. HEENT: Normocephalic. Neck is supple. Pupils reactive. Nostrils clear. Oral cavity is moist. Neck reveals no JVD, carotid bruits, or thyromegaly. CHEST EXAMINATION: Trachea is central. Symmetrical expansion. Lung hernandez clear to auscultation and percussion. CARDIAC: Normal S1, S2 with no gallops. No murmurs ABDOMEN: Soft. Bowel sounds normal. No organomegaly. No abdominal bruits. Extremities: reveal no edema. No clubbing or cyanosis Neurologically awake, alert, oriented x3 with well-coordinated movements. No focal deficits noted Skin: No rash or skin lesions. Psychiatric: Cooperative. Nonsuicidal Musculoskeletal: No joint swelling or deformity. Normal range of motion. - Labs CBC & Chem 7: 12/21/21 07:02 12/21/21 07:02 Labs: Abnormal Lab Results - Last 24 Hours (Table) 12/21/21 12/21/21 Range/Units 07:02 07:02 RBC 3.86 L (4.40-5.60) X 10*6/uL Hgb 8.8 L (13.0-17.0) g/dL Hct 28.8 L (39.6-50.0) % MCV 74.6 L (80.0-97.0) fL MCH 22.8 L (27.0-32.0) pg MCHC 30.6 L (32.0-37.0) g/dL MPV 8.6 L (9.5-12.2) fL Immature Gran # 0.09 H (0.00-0.04) X 10*3/uL Monocytes # 1.03 H (0.20-1.00) X 10*3/uL Est GFR (CKD-EPI)NonAf 58.1 L (60.0-200.0) Iron 22 L (65-175) ug/dL TIBC 223 L (228-460) ug/dL % Saturation 9.97 L (15.00-50.00) Transferrin 159.0 L (204.0-354.0) mg/dL Microbiology - Last 24 Hours (Table) 12/19/21 17:30 Blood Culture - Preliminary Blood No Growth after 24 hours 12/19/21 17:15 Blood Culture - Preliminary Blood No Growth after 24 hours 12/19/21 15:13 Urine Culture - Final Urine,Voided Assessment and Plan Assessment: Acute perforated diverticulitis with abscess formation Bladder wall thickening at the elbow abscess with possible fistula formation from the perforated diverticulitis. Acute kidney injury likely prerenal Hypovolemic hyponatremia Microcytic anemia. Rule out iron deficiency. Hypokalemia Left obstructing renal calculus BPH Urinary frequency and urgency Hypertension DVT prophylaxis Heparin subcu Plan: Patient will be continued on IV hydration and antibiotics in the form of Zosyn. Follow-up renal function. Replace electrolytes. Follow-up blood cultures and urine cultures. Urology and general surgery is on board.. Patient is being continued on liquid diet. General surgery is planning for OR early next week. Continue to follow closely. Prognosis is guarded at this time. Time with Patient: Greater than 30
[2021-12-22] MEDS: PIPERACILLIN-TAZOBACTAM 3.375 GM in SODIUM CHLORIDE 0.9% 100 ML IVPB SCH ×2 (00:07→09:15)
[2021-12-22] MEDS: HEPARIN SODIUM,PORCINE/PF 5,000 UNIT/0.5 ML SYRINGE SQ SCH ×2 (00:11→09:20)
[2021-12-22] MEDS: SODIUM CHLORIDE 0.9% 1,000 ML IV SCH (03:33)
[2021-12-22 05:26] VITALS: RESP 16
[2021-12-22 06:51] LABS: Basophils # (A) 0.1 k/uL (0-0.2); Basophils % (A) 1 %; Eosinophils # (A) 0.3 k/uL (0-0.7); Eosinophils % (A) 4 %; HCT 30.1 % (39.0-53.0); HGB 9.5 gm/dL (13.0-17.5); Hypochromasia Slight; Lymphocytes # (A) 1.8 k/uL (1.0-4.8); Lymphocytes % (A) 25 %; MCHC 31.5 g/dL (31.0-37.0); MCV 76.3 fL (80.0-100.0); Mean Platelet Volume 6.9; Monocytes # (A) 0.7 k/uL (0-1.0); Monocytes % (A) 9 %; Neutrophils # (A) 4.2 k/uL (1.3-7.7); Neutrophils % (A) 59 %; Platelet Count 417 k/uL (150-450); RBC 3.95 m/uL (4.30-5.90); RDW 13.9 % (11.5-15.5); WBC 7.1 k/uL (3.8-10.6)
[2021-12-22 07:02] LABS: African American GFR (CKD) 65 (>60 ml/min/1.73 sqM); Anion Gap 4 mmol/L; Blood Urea Nitrogen 15 mg/dL (9-20); Carbon Dioxide 23 mmol/L (22-30); Chloride 110 mmol/L (98-107); Glucose 90 mg/dL (74-99); Non-African American GFR(CKD) 56 (>60 ml/min/1.73 sqM); Sodium 137 mmol/L (137-145)
[2021-12-22 12:18] VITALS: BP 114/74; PULSE 83; TEMP 97.4
--- NOTE | 2021-12-22 13:47 | P.PN ---
Subjective Progress Note Date: 12/22/21 CHIEF COMPLAINT: Acute perforated diverticulitis with abscess formation and colovesical fistula HISTORY OF PRESENT ILLNESS: Patient denies any abdominal pain. Patient reports that he is still having the dysuria. He is no longer passing any air through his urethra. And his urine is clear. He did report having a bowel movement. He is currently IV antibiotics. Afebrile. WBC 7.1 hemoglobin 9.5 platelets 417 sodium 137 potassium 4.0 creatinine up at 1.31. Patient seen and examined with Dr. hinkle PHYSICAL EXAM: VITAL SIGNS: Reviewed. GENERAL: Well-developed in no acute distress. HEENT: No sclera icterus. Extraocular movements grossly intact. Moist buccal mucosa. Head is atraumatic, normocephalic. ABDOMEN: Soft. Nondistended. Nontender. NEUROLOGIC: Alert and oriented. Cranial nerves II through XII grossly intact. ASSESSMENT: 1. Acute perforated diverticulitis with abscess formation and colovesical fistula 2. Iron deficiency anemia status post IV iron transfusion PLAN: -Patient can be discharge from surgical standpoint -Patient to follow-up with Dr. hinkle in office on Saturday to discuss colonoscopy and surgery date -Recommend to discharge home with Levaquin and Flagyl for 10 days Physician English And Reading Instructor note has been reviewed by physician. Signing provider agrees with the documented findings, assessment, and plan of care. Objective - Vital Signs Vital signs: Vital Signs Temp 97.8 F 12/22/21 06:00 Pulse 82 12/22/21 06:00 Resp 16 12/22/21 06:00 BP 107/71 12/22/21 06:00 Pulse Ox 97 12/22/21 06:00 Intake & Output 12/21/21 12/22/21 12/22/21 18:59 06:59 18:59 Other: Voiding Method Urinal Urinal # Voids 3 0 - Labs CBC & Chem 7: 12/22/21 05:52 12/22/21 05:52 Labs: Abnormal Lab Results - Last 24 Hours (Table) 12/22/21 12/22/21 Range/Units 05:52 05:52 RBC 3.95 L (4.30-5.90) m/uL Hgb 9.5 L (13.0-17.5) gm/dL Hct 30.1 L (39.0-53.0) % MCV 76.3 L (80.0-100.0) fL MCH 24.0 L (25.0-35.0) pg Chloride 110 H (98-107) mmol/L Creatinine 1.31 H (0.66-1.25) mg/dL Microbiology - Last 24 Hours (Table) 12/19/21 17:30 Blood Culture - Preliminary Blood No Growth after 48 hours 12/19/21 17:15 Blood Culture - Preliminary Blood No Growth after 48 hours
--- NOTE | 2021-12-25 12:54 | P.DS ---
Providers Date of admission: 12/19/21 20:32 Expected date of discharge: 12/22/21 Attending physician: Nuvia Mane Consults: 12/19/21 20:32 Consult Physician Routine Consulting Provider: Manish Muñoz Consult Reason/Comments: Perforated diverticulum; Bladder fistula? Do you want consulting provider notified?: Already Contacted Consult Physician Stat Consulting Provider: Silver Engel Consult Reason/Comments: perforated diverticulum with poss bladder fistula; UTI Do you want consulting provider notified?: Already Contacted Primary care physician: Shiv Staton Hospital Course: Final diagnosis Acute perforated diverticulitis with abscess formation Bladder wall thickening with possible abscess with possible fistula formation from the perforated diverticulitis. Acute kidney injury likely prerenal Hypovolemic hyponatremia Microcytic anemia. iron deficiency anemia. Hypokalemia, improved Left obstructing renal calculus BPH Urinary frequency and urgency Hypertension DVT prophylaxis Discharge disposition Patient is being discharged in a stable condition with guarded prognosis to home. Patient will follow-up with Dr. Chaney in the outpatient setting upon discharge. Patient is to also follow-up this week with surgery as scheduled. Patient will continue on oral antibiotics in the form of Flagyl 500 mg 3 times a day and Levaquin 500 milligrams daily for the next 10 days. Prescription provided for repeat labs in the outpatient setting. Total time taken is greater than 35 minutes. Hospital course This is a 66-year-old male who was recently admitted with brown colored urine and foul-smelling from the penis with bubbles of air and was being closely monitored. Patient was evaluated by general surgery along with urology as patient recently had cystoscope done in the outpatient setting. Patient was started on antibiotics outpatient although failed and continued to worsen and was brought here for further evaluation. Patient underwent CT of the abdomen and pelvis which showed concerning findings of possible perforated diverticulitis with abscess formation and the abscess sitting immediately above the urinary bladder with thickening noted and possible abscess within the bladder lumen which would suggest possible fistula from the abscess to the bladder. Patient was evaluated by urology and will follow-up outpatient. Patient no longer further has air or brown colored urine from the penis and is urinating with no further burning or frequency and denies further abdominal pain and is asking to go home as it is his '[age] birthday. Surgery evaluated the patient today and resuming diet and is planning to have him follow-up outpatient for colonoscopy and possible surgical intervention this Saturday as scheduled. Currently no reports of chest pain, shortness of breath, or palpitations. Patient is afebrile. No reports of nausea or vomiting and patient is tolerating diet. Patient will be discharged home today. Patient will continue on oral antibiotics in the form of Flagyl and Levaquin as scheduled and prescribed and also prescription for repeat labs prior to surgery is ordered and prescriptions provided. Guarded prognosis. PHYSICAL EXAMINATION: Patient is sitting up in the chair comfortably, no acute distress, awake alert and oriented.. HEENT: Normocephalic. Neck is supple. Pupils reactive. Nostrils clear. Oral cavity is moist. Neck reveals no JVD, carotid bruits, or thyromegaly. CHEST EXAMINATION: Trachea is central. Symmetrical expansion. Lung hernandez clear to auscultation and percussion. CARDIAC: Normal S1, S2 with no gallops. No murmurs ABDOMEN: Soft. Obese. Bowel sounds normal. No organomegaly. No abdominal bruits. Extremities: reveal no edema. No clubbing or cyanosis Neurologically awake, alert, oriented x3 with well-coordinated movements. No focal deficits noted Skin: No rash or skin lesions. Psychiatric: Cooperative. Non-suicidal Musculoskeletal: No joint swelling or deformity. Normal range of motion. Please refer to medication reconciliation sheet for a list of medications. Patient Condition at Discharge: Fair Plan - Discharge Summary New Discharge Prescriptions: New metroNIDAZOLE [Flagyl] 500 mg PO TID 10 Days #30 tab Levofloxacin [Levaquin] 500 mg PO DAILY 10 Days #10 tab Continue Alfuzosin HCl [Alfuzosin HCl ER] 10 mg PO W/SUPPER Turmeric Root Extract [Turmeric] 500 mg PO DAILY Olmesartan/Hydrochlorothiazide [Olmesartan-Hctz 20-12.5 mg Tab] 1 tab PO DAILY Fish Oil/Dha/Epa [Fish Oil 1,200 mg Fish Oil] 1 cap PO DAILY Discontinued Ciprofloxacin HCl [Cipro] 500 mg PO BID Discharge Medication List Alfuzosin HCl [Alfuzosin HCl ER] 10 mg PO W/SUPPER 12/19/21 [History] Fish Oil/Dha/Epa [Fish Oil 1,200 mg Fish Oil] 1 cap PO DAILY 12/19/21 [History] Olmesartan/Hydrochlorothiazide [Olmesartan-Hctz 20-12.5 mg Tab] 1 tab PO DAILY 12/19/21 [History] Turmeric Root Extract [Turmeric] 500 mg PO DAILY 12/19/21 [History] Levofloxacin [Levaquin] 500 mg PO DAILY 10 Days #10 tab 12/22/21 [Rx] metroNIDAZOLE [Flagyl] 500 mg PO TID 10 Days #30 tab 12/22/21 [Rx] Follow up Appointment(s)/Referral(s): Shemar Chaney MD [Primary Care Provider] - 1-2 days (The office is closed please call to make follow up appointment.) Manish Muñoz MD [STAFF PHYSICIAN] - 12/26/21 (The office is closed please call and make follow up appointment.) Ambulatory/Diagnostic Orders: Complete Blood Count w/diff [LAB.AMB] Time Frame: 3 Days, Location: None Selected Patient Instructions/Handouts: Diverticulitis (ED) Activity/Diet/Wound Care/Special Instructions: Activity Limited until follow-up Continue taking medications as prescribed Recommend repeat labs in 2-3 days to monitor hemoglobin and kidney functions Follow-up with surgery as discussed and scheduled Follow-up primary care provider on discharge Continue with antibiotics until finished Continue regular diet until follow-up with surgery Discharge Disposition: HOME SELF-CARE
== END 2021-12-22 15:33 | disposition home or self-care (01) | DRG 699 ==
LOC: EC 14:42 → 5NMEDONC 20:32
PROVIDERS: ADMIT Hospitalist; ATTEND Hospitalist
DX: N32.1 Vesicointestinal fistula (principal); K57.80 Diverticulitis of intestine, part unspecified, with perforation and abscess without bleeding; E87.1 Hypo-osmolality and hyponatremia; N13.8 Other obstructive and reflux uropathy; N17.9 Acute kidney failure, unspecified; N39.0 Urinary tract infection, site not specified; E86.1 Hypovolemia; D50.9 Iron deficiency anemia, unspecified; E87.6 Hypokalemia; I10 Essential (primary) hypertension; N20.0 Calculus of kidney; N40.1 Benign prostatic hyperplasia with lower urinary tract symptoms; Z20.822 Contact with and (suspected) exposure to COVID-19; K40.20 Bilateral inguinal hernia, without obstruction or gangrene, not specified as recurrent; Z90.49 Acquired absence of other specified parts of digestive tract; Z86.14 Personal history of Methicillin resistant Staphylococcus aureus infection; Z79.899 Other long term (current) drug therapy
CPT/HCPCS: 36415; 74176; 80048; 80053; 83540; 83550; 83605; 85025; 85610; 85730; 87040; 87086; 87635; 96361; 96365; 99285

== ENCOUNTER → 2022-01-18 | Outpatient (CLI) | payer MEDICARE ==
[2022-01-18 12:46] LABS: African American GFR (CKD) >90 (>60 ml/min/1.73 sqM); Blood Urea Nitrogen 18 mg/dL (9-20); Non-African American GFR(CKD) 82 (>60 ml/min/1.73 sqM)
--- NOTE | 2022-01-18 14:30 | CT ---
EXAMINATION TYPE: CT abdomen pelvis w con DATE OF EXAM: 01/18/2022 COMPARISON: CT dated 12/19/2021 HISTORY: Vesicointestinal fistula. CT DLP: 1622.6 mGycm Automated exposure control for dose reduction was used. TECHNIQUE: Helical acquisition of images was performed from the lung bases through the pelvis. CONTRAST: Performed with Oral Contrast and with IV Contrast, patient injected with 100ml mL of Isovue 300. FINDINGS: Persistent marginally enhancing collection containing debris and gas seen along the anterior inferior aspect of the mid sigmoid colon and inseparable anteriorly from the small bowel loops, and inferiorl y from the urinary bladder. It roughly measures 4 x 8 cm in AP and clinical dimensions, not significa ntly changed in size compared to the previous CT scan with slightly thickened wall. This most likely represent contained perforation from previous diverticulitis with abscess formation. 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 There is possible fistulous communication with adjacent small bowel yet it does not seen opacified. The oral contrast reached the mid descending colon. No rectal contras t was given. Persistent enlargement of the prostate, please correlate with PSA level. Unremarkable seminal vesicle s. Stable left hepatic lobe posterior lesion, likely representing a hepatic hemangioma. No other defi nite hepatic focal lesion. Unremarkable gallbladder, spleen, pancreas, adrenals and abdominal aorta. Stable right renal simple cysts without suspicious features. Tiny left renal hypodensities likely rep resenting tiny renal cysts with focal cortical defects likely representing sequela of previous infarc t/infection. No hydroureter or hydronephrosis. No suspicious lymphadenopathy or sizable ascites. Bila teral fat-containing inguinal hernias. Unremarkable lung bases. Degenerative changes lower lumbar spi ne. IMPRESSION: Persistent collection/abscess between the mid sigmoid colon and the superior aspect of the urinary bl adder and inseparable from the adjacent pelvic small bowel loops as described above, likely represent ing sequela of contained perforation of previous diverticulitis with high suspicion of fistulous comm unication with the urinary bladder which demonstrates air within. Recommend correlation with urinalysis results. Further surgery consultation can be considered. Future follow-up CT scan can be performed with rectal contrast to document the fistulous communication. Oth er interval changes and incidental findings as described above.
== END | disposition home or self-care (01) ==
LOC: RADCTMAIN 11:59
PROVIDERS: ATTEND Surgery
DX: N32.1 Vesicointestinal fistula (principal)
CPT/HCPCS: 82565; 84520; 74177; 36415; Q9967

== ENCOUNTER → 2022-01-22 | Outpatient (CLI) | payer MEDICARE ==
--- NOTE | 2022-01-22 10:53 | FL ---
EXAMINATION TYPE: FL barium enema DATE OF EXAM: 01/22/2022 COMPARISON: CT 01/18/2022 HISTORY: Colovesical fistula TECHNIQUE: A single contrast barium enema study is performed. A total of 2 minutes 7 seconds of fl uoroscopic time was utilized during procedure and 11 images obtained. FINDINGS: Limited exam was performed. Patient's colon was filled in a retrograde fashion and images o btained. Extensive diverticular change noted in the sigmoid colon. Contrast collection extends anteriorly from the sigmoid colon as noted on CT, similar findings to sagittal image #70 consistent with extralumina l medication and abscess formation. Contrast not definitely seen to extend into the urinary bladder h owever patient reports sensation of bladder filling with air which he has described on previous occas ion. IMPRESSION: Findings consistent with extraluminal abscess as described. 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
== END | disposition home or self-care (01) ==
LOC: RADFLMAIN 09:01
PROVIDERS: ATTEND Surgery
DX: N32.1 Vesicointestinal fistula (principal)
CPT/HCPCS: 74270